=== PATIENT | female | born 1990 | race Caucasian/White ===

== ENCOUNTER 2022-05-15 03:39 | Inpatient (IN) ==
[2022-05-15] MEDS ORDERED: LACTATED RINGER'S 1,000 ML IV PRN (04:11)
[2022-05-15] MEDS ORDERED: OXYTOCIN 30 UNITS/500 ML BAG IV PRN ×2 (04:11→08:37)
[2022-05-15 04:40] LABS: Hematocrit (blood only) 36.6 % (37-47); Hemoglobin 12.6 g/dL (12.0-16.0); Mean Corpuscular Volume 92.9 fL (80-100); Mean Platelet Volume 12.3 fL (7.4-10.4); Platelet Count 177 K/uL (130-400); RDW Coefficient of Variation 13.6 % (11.5-14.5); RDW Standard Deviation 46.6 fL (36.4-46.3); Red Blood Count 3.94 M/uL (4.2-5.4); White Blood Count 11.78 K/uL (4.8-10.8)
--- NOTE | 2022-05-15 04:41 | History & Physical Report ---
Date of Service May 15, 2022 Assessment & Plan (1) Active labor at term: Plan: anticipate normal delivery Admission and Anticipated Discharge Date Admission Date: May 15, 2022 History of Present Illness Chief Complaint: labor at term Primary Care Provider: JAQUAN PCP [id number] at 40.1 weeks admitted in active labor. GBS is negative. Covid is pending. 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 Beliefs That Will Affect Care: None marital status: Current Living Situation: Spouse Other Information That Helps Us Care for You: No Feels Safe at Home: Yes Safety Concerns: Feels Safe At This Time 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 Physical Exam Constitutional: WD/WN, vitals as above Respiratory: normal respiratory effort, lungs clear to auscultation Cardiovascular: RRR, no murmur, no edema Skin: no rashes, warm and dry Neurologic: patellar DTR's 2+ bilat, sensation intact Psychiatric: A+Ox3, euthymic affect Genitourinary: Manual OB Exam: + cervical dilation 5 cm, + cervical effacement 90% and + station -2 OB Exam Monitor Tracing: + external FHT monitor used, + external uterine monitor used, + category I and + normal FHT variability Results & Data ([facility]) Vital Signs (Past 12 Hours) Vital Signs Temp Pulse Resp BP 05/15/22 04:05 36.4 C L 18 05/15/22 03:50 77 130/79
[2022-05-15 04:45] LABS: Mean Corpuscular Hgb Conc 34.4 g/dL (32-36)
[2022-05-15] MEDS ORDERED: NALBUPHINE HCL INJ 10 MG/ML AMP IV PRN (05:50)
[2022-05-15] MEDS ORDERED: ePHEDrine sulfate 50 MG/ML AMP ONE (05:50)
[2022-05-15] MEDS ORDERED: NALOXONE HCL 0.4 MG/1 ML VIAL/CARP IV PRN (05:50)
[2022-05-15] MEDS ORDERED: diphenhydrAMINE 50 MG/ML VIAL IV PRN (05:50)
[2022-05-15] MEDS ORDERED: ONDANSETRON INJ 2 MG/ML 2 ML VIAL IV PRN (05:50)
[2022-05-15] MEDS ORDERED: NALOXONE HCL 1 MG in SODIUM CHLORIDE 0.9% 1000ML 1,000 ML IV PRN (05:50)
[2022-05-15] MEDS ORDERED: ePHEDrine sulfate 50 MG/ML AMP IV PRN (05:50)
[2022-05-15] MEDS ORDERED: fentaNYL 2MCG/ML ROPIVACAINE 1.25MG/ML 100 ML BAG EPI PRN (05:50)
[2022-05-15] MEDS ORDERED: fentaNYL 2MCG/ML ROPIVACAINE 1.25MG/ML 100 ML BAG EPI ONE (05:51)
[2022-05-15] MEDS ORDERED: BUPIVACAINE 0.25% 30 ML VIAL ONE (05:51)
[2022-05-15] MEDS ORDERED: fentaNYL citrate 100 MCG/2 ML VIAL ONE (05:51)
[2022-05-15] MEDS ORDERED: SODIUM CHLORIDE 0.9% INJ 10 ML VIAL ONE (05:51)
--- NOTE | 2022-05-15 05:52 | Anesthesiology Consultation ---
Date of Service May 15, 2022 Assessment & Plan (1) Encounter for pre-operative examination: Chart Review Chart Review: Patient NOT seen in Pre Admission Testing and Acceptable Risk for Labor Epidural Consults Requested none History Height/Weight Height: 5 ft 10 in Weight: 90.718 kg Allergies Allergy/AdvReac Type Severity Reaction Status Date / Time No Known Allergies Allergy Unverified 09/08/10 10:32 Medications Home Medications Medication Instructions Recorded Confirmed Last Taken Multivit/Min/Iron/Fol Ac/Pren 1 tab PO DAILY #0 09/08/10 05/15/22 05/14/22 08:00 ( Vitamin) Exercise / Class Metabolic Activity II 4-5 Yardwork/Stairs/Walk up hill Past Anesthesia History No Hx of Anesthesia Complications and No Family Hx of Anesthesia Complications History of PONV No Hx of PONV and No Hx of Motion Sickness Social History Smoking Status: Never smoker Hx Alcohol Use: No Hx Substance Use: No Physical Exam Vital Signs Last Vital Signs Temp 36.4 C L 05/15/22 04:05 Pulse 83 05/15/22 06:11 Resp 18 05/15/22 04:05 BP 134/84 05/15/22 06:11 Pulse Ox 93 05/15/22 06:10 Testing Laboratory Results 05/15/22 04:28
--- NOTE | 2022-05-15 08:36 | Delivery Summary ---
Vaginal Delivery Summary Date of Service May 15, 2022 Vaginal Delivery Summary Delivery Note live male IVA over intact perineum with delayed cord clamping and Apgars 8/9 weight pending. Cord blood obtained followed by spontaneous delivery of intact placenta. No tears. EBL 100 ml. Final sponge and instrument count are correct. Mom and baby stable.
[2022-05-15] MEDS ORDERED: bisacodyL 10 MG SUPP PR PRN (08:37)
[2022-05-15] MEDS ORDERED: DIPHTHERIA/TETANUS/PERTUSSIS 0.5 ML SYR/VIAL IM ONE (08:37)
[2022-05-15] MEDS ORDERED: ACETAMINOPHEN 325 MG TAB PO PRN (08:37)
[2022-05-15] MEDS ORDERED: BENZOCAINE 20% AER SPR 82.5 GM CAN EXT PRN (08:37)
[2022-05-15] MEDS ORDERED: HYDROCORTISONE ACETATE 25 MG SUPP PR PRN (08:37)
[2022-05-15] MEDS ORDERED: IBUPROFEN 600 MG TAB PO PRN (08:37)
[2022-05-15] MEDS ORDERED: NON-FORMULARY MEDICATION (Multivit/Min/Iron/Fol Ac/Pren (Prenatal Vitamin) tablet) PO SCH (09:00)
--- NOTE | 2022-05-15 10:12 | Anesthesia Procedure Note ---
Date of Service May 15, 2022 Anesthesia Post Epidural Note Vital Signs Vital Signs: Temp Pulse Resp BP Pulse Ox 36.5 C 73 18 127/61 98 05/15/22 07:00 05/15/22 10:10 05/15/22 08:30 05/15/22 10:10 05/15/22 08:19 Pain Intensity Bilateral Abdomen: Pain Intensity: 0 Notes Mental Status: alert / awake / arousable and participated in evaluation Nausea / Vomiting: adequately controlled Pain: adequately controlled Airway Patency, RR, SpO2: stable & adequate BP & HR: stable & adequate Hydration State: stable & adequate Neuraxial Anesthesia: was administered and sensory block is resolving Anesthetic Complications: no major complications apparent Epidural: Removed without complications and With tip intact
[2022-05-15] MEDS: DOCUSATE SODIUM 100 MG CAP PO SCH (21:24)
[2022-05-16 07:09] LABS: Hematocrit (blood only) 36.2 % (37-47); Hemoglobin 12.1 g/dL (12.0-16.0); Mean Corpuscular Hemoglobin 30.9 pg (25-34); Mean Corpuscular Hgb Conc 33.4 g/dL (32-36); Mean Corpuscular Volume 92.6 fL (80-100); Mean Platelet Volume 12.2 fL (7.4-10.4); Platelet Count 166 K/uL (130-400); RDW Coefficient of Variation 13.9 % (11.5-14.5); RDW Standard Deviation 47.1 fL (36.4-46.3); Red Blood Count 3.91 M/uL (4.2-5.4); White Blood Count 10.75 K/uL (4.8-10.8)
[2022-05-16] MEDS ORDERED: PRENATAL VITAMIN 1 TAB PO SCH (08:00)
[2022-05-16] MEDS: DOCUSATE SODIUM 100 MG CAP PO SCH (09:27)
[2022-05-16] MEDS ORDERED: bisacodyL 5 MG TABEC PO SCH (20:00)
== END 2022-05-16 14:20 | disposition home or self-care (01) | DRG 807 ==
LOC: OPB 03:39 → 4S1 03:47 → 4E1 16:57